=== PATIENT | female | born 1945 | race Caucasian/White ===

== ENCOUNTER 2022-09-11 10:43 | Outpatient (CLI) | payer MEDICARE | END 2022-09-11 10:44 | disposition home or self-care (01) | LOC: BICCT 10:43 | PROVIDERS: ATTEND Neurological Surgery | DX: Z87.311 Personal history of (healed) other pathological fracture (principal) | CPT/HCPCS: 72192 ==

== ENCOUNTER 2024-08-31 14:46 | Outpatient (CLI) | payer MEDICARE | END 2024-08-31 14:47 | disposition home or self-care (01) | LOC: BICRAD 14:46 | PROVIDERS: ATTEND Family Medicine | DX: M25.511 Pain in right shoulder (principal); R05.3 Chronic cough; M19.011 Primary osteoarthritis, right shoulder | CPT/HCPCS: 71046 ==